=== PATIENT | female | born 1970 | race Caucasian/White ===

== ENCOUNTER 2024-07-16 19:23 | Emergency (ER) | payer BC | END 2024-07-16 19:37 | disposition home or self-care (01) | LOC: VM.ED 19:23 | DX: S61.412A Laceration without foreign body of left hand, initial encounter (principal); W26.0XXA Contact with knife, initial encounter | CPT/HCPCS: 99282; 99283 ==

== ENCOUNTER 2024-08-21 10:55 | Observation (INO) | payer BC ==
[2024-08-21 11:17] LABS: EOSINOPHILS PERCENT AUTO 0.2 % (0.0-4.0); HEMATOCRIT 34.6 % (33.0-47.0); HEMOGLOBIN 12.7 g/dL (12.0-16.0); LYMPHOCYTES ABSOLUTE AUTO 1.2 x10^3/uL (1.0-4.8); MEAN CORPUSCULAR HEMOGLOBIN 38.6 pg (26.0-32.0); MEAN CORPUSCULAR HGB CONC 36.7 g/dL (32.0-36.0); MEAN CORPUSCULAR VOLUME 105.2 fL (78.0-93.0); MONOCYTES ABSOLUTE AUTO 0.6 x10^3/uL (0.0-0.8); MONOCYTES PERCENT AUTO 9.9 % (2.0-11.0); NEUTROPHILS ABSOLUTE AUTO 4.5 x10^3/uL (1.8-7.7); NEUTROPHILS PERCENT AUTO 70.3 % (50.0-80.0); PLATELET COUNT,PLT 283 x10^3/uL (130-400); RED BLOOD CELL COUNT 3.29 x10^6/uL (4.00-5.50); WHITE BLOOD CELL COUNT,WBC 6.4 x10^3/uL (4.0-10.0)
[2024-08-21] MEDS: Ketorolac 15 MG/ML SDV IVPUSH ONE (11:20)
[2024-08-21] MEDS: Ondansetron 4 MG/2 ML SDV IVPUSH ONE (11:22)
[2024-08-21] MEDS: Lactated Ringers 1,000 ML IV ONE (11:23)
[2024-08-21 11:30] LABS: A/G RATIO 0.53; ALANINE AMINOTRANSFERASE,ALT 21 U/L (14-59); ALBUMIN 2.4 g/dL (3.4-5.0); ALKALINE PHOSPHATASE 94 U/L (46-116); ASPARTATE AMNIOTRANSFERASE,AST 31 U/L (15-37); BILIRUBIN TOTAL 0.9 mg/dL (0.2-1.0); BLOOD UREA NITROGEN,BUN 14 mg/dL (7-18); C-REACTIVE PROTEIN 14.91 mg/dL (<=0.50); CALCIUM 9.2 mg/dL (8.5-10.1); CARBON DIOXIDE,CO2 23 mmol/L (21-32); CHLORIDE,CL 98 mmol/L (98-107); CREATININE 0.8 mg/dL (0.55-1.02); GLUCOSE RANDOM 106 mg/dL (70-99); PROTEIN TOTAL,TP 6.9 g/dL (6.4-8.2); SODIUM,NA 134 mmol/L (136-145)
[2024-08-21 11:37] LABS: ANION GAP 15.9 mmol/L (5-15); ESTIMATED GFR 87 mL/min (>=60); POTASSIUM,K 2.9 mmol/L (3.5-5.1)
[2024-08-21] MEDS: Potassium Bicarbonate 25 MEQ Tab.EFF PO ONE (11:56)
[2024-08-21] MEDS: Potassium Chloride Riders 20 MEQ in Premix Bag 1 BAG IV SCH (11:56)
[2024-08-21] MEDS: Sodium Chloride 0.45% 1,000 ML IV SCH (12:28)
[2024-08-21] MEDS: cefTRIAXone 2 GM Vial IVPUSH SCH (13:21)
[2024-08-21] MEDS: Azithromycin 250 MG Tab PO SCH (13:43)
[2024-08-21] MEDS: Iopamidol 612 MG/ML 100 ML Bottle IVPUSH ONE (13:50)
[2024-08-21] MEDS: Azithromycin 500 MG in Sodium Chloride 0.9% 250 ML IV SCH (14:13)
[2024-08-21] MEDS: Albuterol/Ipratropium 3.0-0.5 MG/3 ML Neb Soln NEB SCH (15:05)
[2024-08-21] MEDS: Ibuprofen 200 MG Tab PO PRN (16:28)
[2024-08-21] MEDS: Ondansetron 4 MG/2 ML SDV IVPUSH PRN (16:29)
[2024-08-21 17:17] LABS: CALCIUM 8.6 mg/dL (8.5-10.1); CREATININE 0.8 mg/dL (0.55-1.02); EST CRCL DRUG DOSING (CG) 74.38 mL/min; POTASSIUM,K 3.7 mmol/L (3.5-5.1)
[2024-08-21 17:19] LABS: ANION GAP 13.7 mmol/L (5-15)
[2024-08-21] MEDS: Acetaminophen 500 MG Tab PO PRN (18:51)
[2024-08-22 07:45] LABS: HEMATOCRIT 30.3 % (33.0-47.0); MEAN CORPUSCULAR HEMOGLOBIN 38.6 pg (26.0-32.0); MEAN CORPUSCULAR HGB CONC 36.3 g/dL (32.0-36.0); MEAN CORPUSCULAR VOLUME 106.3 fL (78.0-93.0); RED BLOOD CELL COUNT 2.85 x10^6/uL (4.00-5.50); WHITE BLOOD CELL COUNT,WBC 4.9 x10^3/uL (4.0-10.0)
[2024-08-22 07:47] LABS: A/G RATIO 0.47; ALBUMIN 1.8 g/dL (3.4-5.0); BILIRUBIN TOTAL 0.4 mg/dL (0.2-1.0); CALCIUM 8.7 mg/dL (8.5-10.1); CREATININE 0.6 mg/dL (0.55-1.02); EST CRCL DRUG DOSING (CG) 99.18 mL/min; POTASSIUM,K 3.4 mmol/L (3.5-5.1); PROTEIN TOTAL,TP 5.6 g/dL (6.4-8.2)
[2024-08-22 07:48] LABS: ANION GAP 14.4 mmol/L (5-15)
[2024-08-22] MEDS ORDERED: Azithromycin 250 MG Tab PO SCH (09:00)
[2024-08-22] MEDS: Topiramate 50 MG Tab PO SCH (09:30)
[2024-08-22] MEDS: Levothyroxine 75 MCG Tab PO SCH (09:30)
[2024-08-23] MEDS ORDERED: Levothyroxine 75 MCG Tab PO SCH (07:00)
[2024-08-23 07:39] LABS: EOSINOPHILS PERCENT AUTO 0.8 % (0.0-4.0); HEMATOCRIT 31.2 % (33.0-47.0); HEMOGLOBIN 11.2 g/dL (12.0-16.0); IMMATURE GRAN ABSOLUTE AUTO 0.12 x10^3/uL (0.00-0.07); LYMPHOCYTES ABSOLUTE AUTO 1.6 x10^3/uL (1.0-4.8); LYMPHOCYTES PERCENT AUTO 31.4 % (25.0-50.0); MEAN CORPUSCULAR HEMOGLOBIN 38.5 pg (26.0-32.0); MEAN CORPUSCULAR HGB CONC 35.9 g/dL (32.0-36.0); MEAN CORPUSCULAR VOLUME 107.2 fL (78.0-93.0); MONOCYTES ABSOLUTE AUTO 0.4 x10^3/uL (0.0-0.8); NEUTROPHILS ABSOLUTE AUTO 2.9 x10^3/uL (1.8-7.7); NEUTROPHILS PERCENT AUTO 57.4 % (50.0-80.0); PLATELET COUNT,PLT 343 x10^3/uL (130-400); RED BLOOD CELL COUNT 2.91 x10^6/uL (4.00-5.50)
[2024-08-23 07:43] LABS: CALCIUM 8.7 mg/dL (8.5-10.1); CREATININE 0.7 mg/dL (0.55-1.02); EST CRCL DRUG DOSING (CG) 85.01 mL/min
[2024-08-23] MEDS: Potassium Bicarbonate 25 MEQ Tab.EFF PO SCH (08:22)
[2024-08-23] MEDS: Sodium Chloride 0.9% 10 ML Syringe FLUSH PRN (08:24)
[2024-08-23] MEDS: Levofloxacin/Dextrose 5%-Water 750 MG in Premix Bag 1 BAG IV ONE (10:41)
== END 2024-08-23 15:10 | disposition short-term general hospital (02) ==
LOC: VM.ED 10:55 → UNDOADMOB 13:02 → VM.MS 13:02
PROVIDERS: ADMIT Nurse Practitioner Family; ATTEND Nurse Practitioner Family
DX: J18.9 Pneumonia, unspecified organism (principal); E87.6 Hypokalemia; E87.1 Hypo-osmolality and hyponatremia; E03.9 Hypothyroidism, unspecified; Z79.890 Hormone replacement therapy; Z79.899 Other long term (current) drug therapy; Z88.0 Allergy status to penicillin
CPT/HCPCS: 36415; 71045; 71046; 71260; 80048; 80053; 83605; 83735; 85025; 85027; 86140; 87040; 87428-QW; 94640; 96361; 96365; 96366; 96367; 96375; 96376; 99284; 99285-25; A9270-GY; G0378; J0696; J1885; J1956; J2405; J3480; J7030; J7120; Q9967